=== PATIENT | female | born 1995 | race Caucasian/White ===

== ENCOUNTER 2016-12-20 12:12 | Emergency (ER) | payer OTHER ==
[~2016-12-20] VITALS: Ht 162.6 cm; Wt 67.0 kg
[2016-12-20 12:14] VITALS: BP 121/76; PULSE 89; TEMP 36.8; O2SAT 99; Ht 162.6 cm; Wt 67.0 kg
[2016-12-20] MEDS ORDERED: PROPARACAINE HCL 0.5% OP SOLN 15 ML BTL OP STA (12:22)
[2016-12-20] MEDS ORDERED: CIPROFLOXACIN HCL 0.3% OP SOLN 2.5 ML BTL OP STA (12:41)
[2016-12-20] MEDS ORDERED: HYDR-5688 PO (12:42)
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
== END 2016-12-20 12:54 | disposition home or self-care (01) ==
LOC: C.EDB 12:13 → C.EDD 12:54
DX: H10.9 Unspecified conjunctivitis (principal)